=== PATIENT | female | born 1955 | race Caucasian/White ===

== ENCOUNTER 2024-09-21 07:51 | Outpatient (OUT) | payer MEDICARE, SELFPAY ==
--- NOTE | 2024-09-21 08:00 | CA_ITS ---
Patient Name: CATE OSWALD MR#: [id number] : 1955 Exam Date: 09/21/2024 Ordering Doctor: DR. BRUNO PICKARD M.D. ECHOCARDIOGRAM REPORT PROCEDURE: CA ECHO DOPPLER COMPLETE INDICATIONS: Monitor cardiotoxic drug therapy, Breast CA COMPARISON: None. DESCRIPTION: COMPLETE ECHOCARDIOGRAM Real-time transthoracic echocardiography with 2D, M-mode, spectral and color flow Doppler performed. QUALITY: Technical quality was good. LEFT VENTRICLE: Normal chamber size. Borderline left ventricular hypertrophy. Global left ventricular systolic function is normal. LV EF: Visual estimation of left ventricular ejection fraction is 65%. DIASTOLIC: Normal diastolic function. ATRIAL SEPTUM: LEFT ATRIUM: Normal chamber size. RIGHT ATRIUM: Normal chamber size. RIGHT VENTRICLE: Normal chamber size. Normal right ventricular systolic function. TRICUSPID VALVE: Normal mobility and thickness. No stenosis with trivial regurgitation. No evidence of pulmonary hypertension. RVSP 27 mmHg MITRAL VALVE: Normal mobility and thickness. No evidence of mitral valve stenosis. There is no mitral annular calcification. Trivial mitral regurgitation. AORTIC VALVE: Normal trileaflet appearance. No visible sclerosis. Normal leaflet mobility. No evidence of aortic valve stenosis. No aortic regurgitation. AORTIC ROOT: Normal diameter and appearance. PULMONIC VALVE: Normal thickness and mobility. No stenosis. Trivial regurgitation. PERICARDIUM: No evidence of pericardial effusion. IVC: Collapses with inspirations. Normal size. PLEURA: CONCLUSION: 1. Normal ventricular size and systolic function. LVEF is estimated at 65%. 2. Normal right ventricular size and systolic function. 3. Normal diastolic function. 4. No significant valvular dysfunction. 5. Normal right-sided pressures. 6. No pericardial effusion. Adult Echocardiography Procedure Report Left Ventricle LVEDD (3.7 - 5.6 cm): 4.71 cm LVESD (2.2 - 4.0 cm): 3.32 cm LVIVS thickness (0.6 - 1.2 cm): 1.06 cm LVPW thickness (0.5 - 1.0 cm): 1.04 cm e': 0.11 m/s E - e': 8.38 LVOT Max Gradient: 2.59 mm[Hg] LVOT Area (cm2): 0.81 m/s Peak Velocity (LVOT): 0.81 m/s Mean Velocity (LVOT): 0.60 m/s LVOT Diameter 1.99 cm Left Ventricular Ejection Fraction: 65 % Left Atrium LA Volume Index (2D A2C): 33.85 ml/m2 Left Atrium Systolic Dimension: 3.27 cm Mitral Valve MV E to A Ratio: 1.04 Mitral Valve A-Wave Peak Velocity: 0.92 m/s Mitral Valve E-Wave Peak Velocity: 0.96 m/s Right Ventricle RV Internal Diastolic Dimension: 2.73 cm Aorta AO Root Diam: 3.08 cm Ascending Ao Diam: 2.97 cm Aortic Valve AoV Area (Peak Grey): 1.91 cm2, 1.91 cm2 AoV Area (VTI): 1.97 cm2, 1.97 cm2 Peak Velocity(Antegrade Flow): 1.31 m/s Peak Gradient(Antegrade Flow): 6.86 mm[Hg] Mean Velocity(Antegrade Flow): 0.93 m/s Mean Gradient(Antegrade Flow): 3.93 mm[Hg] Velocity Time Integral: 32.18 cm Tricuspid Valve Peak Velocity (Regurgitant Flow): 2.43 m/s, 1.99 m/s, 2.16 m/s Pulmonic Valve Mean Gradient: 2.37 mm[Hg], 3.04 mm[Hg] Mean Velocity: 0.73 m/s, 0.83 m/s Peak Velocity: 1.09 m/s Peak Gradient: 4.20 mm[Hg], 5.32 mm[Hg] Right Atrium Right Atrium Systolic Pressure: 43.07 ml, 43.07 ml Dictated by: Tyson Raymond M.D. on 09/21/2024 at 17:39 Approved by: Tyson Raymond M.D. on 09/21/2024 at 17:41
== END 2024-09-21 07:52 | disposition home or self-care (01) ==
LOC: CARD 07:52
PROVIDERS: PCP Family Medicine; Visit Provider Internal Medicine Hematology & Oncology
DX: C50.919 Malignant neoplasm of unspecified site of unspecified female breast (principal); Z17.31 Human epidermal growth factor receptor 2 positive status; Z51.81 Encounter for therapeutic drug level monitoring; Z79.899 Other long term (current) drug therapy
CPT/HCPCS: 93306; 93356